=== PATIENT | male | born 1950 | race Caucasian/White ===

== ENCOUNTER 2022-09-22 09:46 | Emergency (ER) | payer BC, OTHER ==
[2022-09-22 10:08] VITALS: TEMP 97.7; BMI 30.7
[2022-09-22] MEDS ORDERED: IBUPROFEN 400 MG TABLET (FP) PO ONE ×2 (10:57→10:59)
[2022-09-22 11:13] VITALS: BP 123/69; PULSE 59; RESP 20
== END 2022-09-22 11:27 | disposition home or self-care (01) ==
LOC: JER 09:46 → JERFT 09:46
DX: M25.562 Pain in left knee (principal)
CPT/HCPCS: 73562-TC-LT-FY; 99283-25